=== PATIENT | male | born 1970 | race Caucasian/White ===

== ENCOUNTER 2020-04-08 21:49 | Emergency (ER) | payer BC ==
--- NOTE | 2020-04-08 21:52 | ERPHSYRPT ---
- History of Present Illness Time Seen by Provider: 04/08/20 21:51 Historian: patient Exam Limitations: no limitations Physician History: This is a 49-year-old white male whose had no prior abdominal surgeries but does have a history of renal nephrolithiasis and ureterolithiasis and presents with initial right flank pain with radiation into his right groin over the last 24 hours. His symptoms are worsening. He is also had associated vomiting today because of worsening pain. He has had no fevers. He has no chest pain he has no shortness of breath. He has had no diarrhea. No other individuals in the family have similar symptoms. Timing/Duration: yesterday Abdominal Pain Onset Location: flank (Right flank) Pain Radiation: groin (Right groin) Severity of Pain-Max: moderate Severity of Pain-Current: moderate Modifying Factors: Improves With: nothing, vomiting Associated Symptoms: nausea, vomiting, other Previous symptoms: same symptoms as today Allergies/Adverse Reactions: shellfish derived Allergy (Severe, Verified 04/08/20 21:57) throat swelling tramadol Allergy (Severe, Verified 04/08/20 21:57) Itching Travel Risk - International Travel Have you traveled outside of the country in past 3 weeks: No - Coronavirus Screening Are you exhibiting any of the following symptoms?: No Close contact with a COVID-19 positive Pt in past 14-21 Days: No - Review of Systems Constitutional: No Symptoms Eyes: No Symptoms Ears, Nose, & Throat: No Symptoms Respiratory: No Symptoms Cardiac: No Symptoms Abdominal/Gastrointestinal: Nausea, Vomiting Genitourinary Symptoms: Flank Pain (Right) Musculoskeletal: No Symptoms Skin: No Symptoms Neurological: No Symptoms Psychological: No Symptoms Endocrine: No Symptoms Hematologic/Lymphatic: No Symptoms Immunological/Allergic: No Symptoms All Other Systems: Reviewed and Negative - Past Medical History Pertinent Past Medical History: Yes Neurological History: No Pertinent History ENT History: No Pertinent History Cardiac History: No Pertinent History Respiratory History: No Pertinent History Endocrine Medical History: No Pertinent History Musculoskeletal History: No Pertinent History History: No Pertinent History Psycho-Social History: No Pertinent History Male Reproductive Disorders: No Pertinent History - Past Surgical History Past Surgical History: No Neuro Surgical History: No Pertinent History Cardiac: Cardiac Stent Respiratory: No Pertinent History Gastrointestinal: No Pertinent History Genitourinary: No Pertinent History Musculoskeletal: No Pertinent History Male Surgical History: No Pertinent History - Nursing Vital Signs Nursing Vital Signs: Initial Vital Signs Temperature 97.9 F 04/08/20 21:49 Pulse Rate 70 04/08/20 21:49 Respiratory Rate 18 04/08/20 21:49 Blood Pressure 172/104 04/08/20 21:49 O2 Sat by Pulse Oximetry 99 04/08/20 21:49 Pain Scale Pain Intensity 4 - Physical Exam General Appearance: mild distress, alert, anxiety Eye Exam: PERRL/EOMI, eyes nml inspection Ears, Nose, Throat Exam: normal ENT inspection, moist mucous membranes Neck Exam: normal inspection, non-tender, supple, full range of motion Respiratory Exam: normal breath sounds, lungs clear, airway intact, No chest tenderness, No respiratory distress Cardiovascular Exam: regular rate/rhythm, normal heart sounds, normal peripheral pulses Gastrointestinal/Abdomen Exam: soft, normal bowel sounds, No tenderness, No guarding Rectal Exam: not done Back Exam: normal inspection, normal range of motion, CVA tenderness (8), No vertebral tenderness Extremity Exam: normal inspection, normal range of motion, pelvis stable Neurologic Exam: alert, oriented x 3, cooperative, baggage and mail agent II-XII nml as tested, normal mood/affect, nml cerebellar function, nml station & gait, sensation nml Skin Exam: normal color, warm, dry Lymphatic Exam: No adenopathy SpO2 Interpretation: normal O2 Delivery: Room Air - Course Nursing assessment & vital signs reviewed: Yes Ordered Tests: Active Orders 24 hr Category Date Time Status IV Insertion STAT Care 04/08/20 22:09 Active ABDOMEN AND PELVIS W/0 CONTRAS [CT] Stat Exams 04/08/20 22:10 Taken CBC W DIFF Stat Lab 04/08/20 22:19 Completed CMP Stat Lab 04/08/20 22:19 Received CULTURE,URINE Stat Lab 04/08/20 22:10 Received LIPASE Stat Lab 04/08/20 22:19 Received Lactic Acid Stat Lab 04/08/20 22:18 Completed UA W/RFX UR CULTURE Stat Lab 04/08/20 22:10 Completed Medication Summary Generic Name Dose Route Start Last Admin Trade Name Freq PRN Reason Stop Dose Admin Sodium Chloride 1,000 mls @ 999 mls/hr 04/08/20 22:09 04/08/20 22:19 Sodium Chloride 0.9% 1000 Ml IV 04/08/20 23:09 999 mls/hr .Q1H1M STA Administration Discontinued Medications Generic Name Dose Route Start Last Admin Trade Name Brandi PRN Reason Stop Dose Admin Hydromorphone HCl 1 mg 04/08/20 22:09 04/08/20 22:23 Hydromorphone 1 Mg/Ml Injection IV 04/08/20 22:10 1 mg STAT ONE Administration Hydromorphone HCl Confirm 04/08/20 22:18 Hydromorphone 1 Mg/Ml Injection Administered 04/08/20 22:19 Dose 1 mg .ROUTE .STK-MED ONE Sodium Chloride Confirm 04/08/20 22:18 Sodium Chloride 0.9% 1000 Ml Administered 04/08/20 22:19 Dose 1,000 mls @ ud .ROUTE .STK-MED ONE Ketorolac Tromethamine 30 mg 04/08/20 22:09 04/08/20 22:23 Toradol 30 Mg Injection IV 04/08/20 22:10 30 mg STAT ONE Administration Ketorolac Tromethamine Confirm 04/08/20 22:17 Toradol 30 Mg Injection Administered 04/08/20 22:18 Dose 30 mg .ROUTE .STK-MED ONE Ondansetron HCl 4 mg 04/08/20 22:09 04/08/20 22:23 Zofran 4 Mg/2 Ml Vial IV 04/08/20 22:10 4 mg STAT ONE Administration Ondansetron HCl Confirm 04/08/20 22:17 Zofran 4 Mg/2 Ml Vial Administered 04/08/20 22:18 Dose 4 mg .ROUTE .STK-MED ONE Lab/Rad Data: Laboratory Result Diagrams 04/08/20 22:19 Laboratory Results 04/08/20 04/08/20 04/08/20 Range/Units 22:19 22:18 22:10 WBC 16.7 H (4.0-10.5) K/mm3 RBC 5.20 (4.1-5.6) M/mm3 Hgb 16.0 (12.5-18.0) gm/dl Hct 45.6 (42-50) % MCV 87.7 (78-100) fl MCH 30.8 (26-32) pg MCHC 35.1 (32-36) g/dl RDW 12.9 (11.5-14.0) % Plt Count 264 (150-450) K/mm3 MPV 10.9 (7.5-11.0) fl Gran % 88.6 H (36.0-66.0) % Eos # (Auto) 0.04 (0-0.5) Absolute Lymphs (auto) 1.02 (1.0-4.6) Absolute Monos (auto) 0.84 (0.0-1.3) Lymphocytes % 6.1 L (24.0-44.0) % Monocytes % 5.0 (0.0-12.0) % Eosinophils % 0.2 (0.00-5.0) % Basophils % 0.1 (0.0-0.4) % Absolute Granulocytes 14.77 H (1.4-6.9) Basophils # 0.02 (0-0.4) Lactic Acid 1.1 (0.4-2.0) Urine Color YELLOW (YELLOW) Urine Appearance SLIGHTLY CLOUDY (CLEAR) Urine pH 5.0 (5-6) Ur Specific [place] 1.028 (1.005-1.025) Urine Protein 100 (Negative) Urine Ketones MODERATE (NEGATIVE) Urine Blood LARGE (0-5) [place]ah[place]/ul Urine Nitrite NEGATIVE (NEGATIVE) Urine Bilirubin NEGATIVE (NEGATIVE) Urine Urobilinogen NEGATIVE (0-1) mg/dL Ur Leukocyte Esterase TRACE (NEGATIVE) Urine WBC (Auto) 3-5 (0-5) /HPF Urine RBC (Auto) >101 (0-2) /HPF U Epithel Cells (Auto) NONE (FEW) /HPF Urine Bacteria (Auto) RARE (NEGATIVE) /HPF Urine Mucus (Auto) MODERATE (NEGATIVE) /HPF Urine Culture Reflexed YES (NO) Urine Glucose NEGATIVE (NEGATIVE) mg/dL - Progress Progress: improved, pain not gone completely, re-examined Progress Note: 04/08/20 23:02 CAT scan of the abdomen and pelvis reveals a 3 mm distal ureteral stone with trace hydronephrosis. Counseled pt/family regarding: lab results, diagnosis, need for follow-up, rad results - Departure Departure Disposition: Home Clinical Impression: Ureterolithiasis Condition: Stable Critical Care Time: No Referrals: DOCTOR,NO FAMILY [Primary Care Provider] - Additional Instructions: Drink plenty of fluids. Take medication as prescribed. Use ibuprofen 600 mg 3 times a day with food for the next 5 days. Follow-up with a urologist if symptoms persist. Prescriptions: Hydrocodone/APAP 5-325 Tab^^^ [[place] 5-325 Tablet^^^] 1 tab PO Q8H PRN PRN #6 tablet MDD 3 PRN Reason: Pain
[2020-04-08] MEDS ORDERED: Hydromorphone 1 mg/ml Injection IV ONE (22:09)
[2020-04-08] MEDS ORDERED: Sodium Chloride 0.9% 1000 ML 1,000 ML IV STA (22:09)
[2020-04-08] MEDS ORDERED: TORAdol 30 mg Injection IV ONE (22:09)
[2020-04-08] MEDS ORDERED: Zofran 4 MG/2 ML VIAL IV ONE (22:09)
[2020-04-08] MEDS ORDERED: TORAdol 30 mg Injection ONE (22:17)
[2020-04-08] MEDS ORDERED: Zofran 4 MG/2 ML VIAL ONE (22:17)
[2020-04-08] MEDS ORDERED: Sodium Chloride 0.9% 1000 ML 1,000 ML ONE (22:18)
[2020-04-08] MEDS ORDERED: Hydromorphone 1 mg/ml Injection ONE (22:18)
[2020-04-08 22:23] LABS: Absolute Neutrophil Ct (ANC) 14.77 (1.4-6.9); BASOPHIL % 0.1 % (0.0-0.4); Basophil (Absolute #) 0.02 (0-0.4); Eosinophil % 0.2 % (0.00-5.0); Eosinophil (Absolute #) 0.04 (0-0.5); Hematocrit 45.6 % (42-50); Lymphocyte (Absolute #) 1.02 (1.0-4.6); Lymphocytes % 6.1 % (24.0-44.0); Mean Cell Volume 87.7 fl (78-100); Mean Corpuscular Hemoglobin 30.8 pg (26-32); Mean Corpuscular Hgb Concent. 35.1 g/dl (32-36); Mean Platelet Volume 10.9 fl (7.5-11.0); Monocyte (Absolute #) 0.84 (0.0-1.3); Neutrophil % 88.6 % (36.0-66.0); Platelet Count 264 K/mm3 (150-450); Red Cell Distribution Width 12.9 % (11.5-14.0); White Blood Count 16.7 K/mm3 (4.0-10.5)
[2020-04-08 22:39] LABS: Appearance SLIGHTLY CLOUDY (CLEAR); Bacteria RARE /HPF (NEGATIVE); Bilirubin NEGATIVE (NEGATIVE); Blood LARGE Ery/ul (0-5); Glucose NEGATIVE (NEGATIVE); Ketones MODERATE (NEGATIVE); Leukocyte Esterase TRACE (NEGATIVE); Mucus MODERATE /HPF (NEGATIVE); Nitrite NEGATIVE (NEGATIVE); Protein,Urine Dip 100 (Negative); Specific Gravity 1.028 (1.005-1.025); Urobilinogen NEGATIVE mg/dL (0-1)
[2020-04-08 22:40] LABS: RBC >101 /HPF (0-2)
[2020-04-08 22:49] LABS: ALBUMIN 4.3 g/dL (3.5-5.0); ALKALINE PHOSPHATASE 81 U/L (38-126); ANION GAP 9.9 MEQ/L (5-15); BLOOD UREA NITROGEN 19 mg/dL (9-20); CHLORIDE 105 mmol/L (98-107); Calcium 9.5 mg/dL (8.4-10.2); Carbon Dioxide 27 mmol/L (22-30); Creatinine 1 1.18 mg/dL (0.66-1.25); EST GLOMERULAR FILTRATION RATE > 60.0 ML/MIN; Glucose 133 mg/dL (74-106); LIPASE 28 U/L (23-300); Potassium 4.1 mmol/L (3.5-5.1); SGOT/AST 37 U/L (17-59); SGPT/ALT 49 U/L (0-50); SODIUM 138 mmol/L (137-145); Total Protein 7.5 g/dL (6.3-8.2)
[2020-04-08] MEDS ORDERED: NORCO 5/325 MG PO ONE (23:06)
[2020-04-08] MEDS ORDERED: NORCO 5/325 MG ONE (23:14)
[2020-04-08 23:35] VITALS: BP 125/75; PULSE 71; O2SAT 97
--- NOTE | 2020-04-09 08:01 | XRAY ---
Indication: Right flank pain. History kidney stone. Multiple contiguous axial images obtained through the abdomen and pelvis without contrast as ordered. Comparison: None Lung bases demonstrates mild dependent atelectasis and minimal left base fibrosis/scarring. No infiltrate or effusion. Heart is not enlarged. Small hiatal hernia. Noncontrasted stomach and bowel loops appear nonobstructed. Normal appendix. Mild fecal debris predominantly in the ascending and transverse colon. 2-3 mm distal right ureter calculus approximately 1 cm proximal to the UVJ. Proximal right ureter is slightly prominent along with moderate hydronephrosis and small perinephric fluid consistent with obstructive uropathy. No other renal calculus. Remaining liver, gallbladder, pancreas, spleen, adrenal glands, left kidney, left ureter, and bladder are unremarkable for noncontrast exam. Mild scattered aortoiliac calcifications without AAA. Osseous structures intact. Impression: 1. 2-3 mm distal right ureter calculus producing obstructive uropathy as detailed. 2. Incidental small hiatal hernia. 3. Remaining CT abdomen/pelvis without contrast exam is negative. Comment: Preliminary interpretation was made by [facility]. No critical discrepancy.
== END 2020-04-08 23:34 | disposition home or self-care (01) ==
LOC: ED 21:49
DX: N13.2 Hydronephrosis with renal and ureteral calculous obstruction (principal)
CPT/HCPCS: 36000; 36415; 74176; 80053; 81001; 83605; 83690; 85025; 87086; 96374; 96375; 99284; J1170; J1885; J2405; A9270-GY